=== PATIENT | female | born 1945 | race Caucasian/White ===

== ENCOUNTER → 2016-08-05 | Outpatient (CLI) | payer BC ==
[~2016-08-05] MED LIST: AMIT25TA9 PO; CHOL1000 PO; FENO48TA9 PO; PRVC10 PO
[2016-08-05 11:29] LABS: CHOLESTEROL 282 mg/dl (0-200); CHOLESTEROL/HDL RATIO 6.4; HDL CHOLESTEROL 44 mg/dl; THYROID STIMULATING HORMONE 0.584 uIu/ml (0.300-4.500); TRIGLYCERIDES 361 mg/dl (0-150); VERY LOW DENSITY LIPOPROT CALC 72 mg/dl
== END | disposition home or self-care (01) ==
LOC: C.LAB 09:02
DX: E78.5 Hyperlipidemia, unspecified (principal); E03.9 Hypothyroidism, unspecified

== ENCOUNTER 2017-01-11 17:12 | Emergency (ER) | payer OTHER, BC ==
[2017-01-11 17:17] VITALS: TEMP 36.7; Ht 170.2 cm
[2017-01-11] MEDS ORDERED: CHOL1000 PO (17:31)
[2017-01-11] MEDS ORDERED: PRVC10 PO (17:31)
[2017-01-11] MEDS ORDERED: AMIT25TA9 PO (17:31)
[2017-01-11] MEDS ORDERED: FENO48TA9 PO (17:31)
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
[2017-01-11 18:23] VITALS: BP 145/79; PULSE 71; O2SAT 98
== END 2017-01-11 18:24 | disposition home or self-care (01) ==
LOC: C.EDB 17:13 → C.EDD 18:24
DX: S50.01XA Contusion of right elbow, initial encounter (principal); V43.62XA Car passenger injured in collision with other type car in traffic accident, initial encounter; Y92.410 Unspecified street and highway as the place of occurrence of the external cause; E11.9 Type 2 diabetes mellitus without complications; E78.5 Hyperlipidemia, unspecified; Z79.899 Other long term (current) drug therapy

== ENCOUNTER → 2017-01-17 | Outpatient (CLI) | payer BC ==
[2017-01-17 12:16] LABS: BASO % 0.2 %; BASO ABS # 0.01 K/uL (0-0.2); COMPLETE YES; HEMATOCRIT 41.9 % (37-47); IG% 1.1 %; LYMPH ABS # 1.49 K/uL (1.2-3.4); MEAN CELL VOLUME 90.7 fL (80-100); MEAN PLATELET VOLUME 11.3 fL (7.4-10.4); MONO % 11.6 %; NEUT % 52.1 %; PLATELET COUNT 160 K/uL (130-400); RED BLOOD COUNT 4.62 M/uL (4.2-5.4); WHITE BLOOD COUNT 4.65 K/uL (4.8-10.8)
[2017-01-17 12:38] LABS: ESTIMATED AVERAGE GLUCOSE 111 mg/dl; HA1C FLAG Normal (Normal)
[2017-01-17 12:49] LABS: GLUCOSE 93 mg/dl (70-99)
[2017-01-17 12:50] LABS: ALT/SGPT 31 U/L (12-78); AST/SGOT 22 U/L (15-37); BLOOD UREA NITROGEN 23 mg/dl (7-18); BUN/CREATININE RATIO 17.4 (10-20); CALCIUM 9.5 mg/dl (8.5-10.1); CARBON DIOXIDE 29 mmol/L (21-32); CHLORIDE 108 mmol/L (98-107); POTASSIUM 4.6 mmol/L (3.5-5.1); SODIUM 142 mmol/L (136-145); TRIGLYCERIDES 295 mg/dl (0-150)
--- NOTE | 2017-01-24 10:14 | CODING QUERY MEDICAL NECESSITY ---
CQSUPPORTING DIAGNOSIS NEEDED A supporting diagnosis is required for the test/procedure performed on this patient in order for us to be reimbursed by the patient's insurance. Please provide a supporting diagnosis for the following test/procedure listed below next to the test name along with your signature. *If there is no additional diagnosis for this patient that would support the following test/procedure please document that below next to the test/procedure. Test(s)/Procedure(s) that require a supporting diagnosis: DOS 01/17/17 GLYCATED HEMOGLOBIN TEST Provider Signature: Date: Thank you M[facility] Information [facility] Once completed, please kindly fax back to [phone] For questions please call [phone]
== END | disposition home or self-care (01) ==
LOC: C.LAB 09:40
DX: E78.5 Hyperlipidemia, unspecified (principal); I10 Essential (primary) hypertension; E88.81 Metabolic syndrome and other insulin resistance; D72.819 Decreased white blood cell count, unspecified; E11.9 Type 2 diabetes mellitus without complications

== ENCOUNTER → 2017-05-26 | Outpatient (CLI) | payer BC ==
[2017-05-26 12:14] LABS: BASO % 0.2 %; BASO ABS # 0.01 K/uL (0-0.2); COMPLETE YES; EOS % 2.6 %; HEMATOCRIT 43.6 % (37-47); IG% 0.7 %; LYMPH % 34.2 %; LYMPH ABS # 1.55 K/uL (1.2-3.4); MEAN CORPUSCULAR HEMOGLOBIN 28.2 pg (25-34); MEAN CORPUSCULAR HGB CONC 31.7 g/dl (32-36); MEAN PLATELET VOLUME 10.6 fL (7.4-10.4); MONO % 10.4 %; NEUT % 51.9 %; PLATELET COUNT 148 K/uL (130-400); WHITE BLOOD COUNT 4.53 K/uL (4.8-10.8)
[2017-05-26 12:42] LABS: ALT/SGPT 41 U/L (12-78); AST/SGOT 27 U/L (15-37); BLOOD UREA NITROGEN 21 mg/dl (7-18); BUN/CREATININE RATIO 19.5 (10-20); CALCIUM 9.3 mg/dl (8.5-10.1); CARBON DIOXIDE 28 mmol/L (21-32); CHLORIDE 104 mmol/L (98-107); CHOLESTEROL 348 mg/dl (0-200); GLUCOSE 92 mg/dl (70-99); POTASSIUM 4.3 mmol/L (3.5-5.1); SODIUM 138 mmol/L (136-145)
[2017-05-26 12:53] LABS: CHOLESTEROL/HDL RATIO 7.7; HDL CHOLESTEROL 45 mg/dl; LDL CHOLESTEROL CALCULATED 230 mg/dl; TRIGLYCERIDES 365 mg/dl (0-150); VERY LOW DENSITY LIPOPROT CALC 73 mg/dl
== END | disposition home or self-care (01) ==
LOC: C.LAB 10:53
DX: E03.9 Hypothyroidism, unspecified (principal); E78.5 Hyperlipidemia, unspecified; D64.9 Anemia, unspecified; E88.81 Metabolic syndrome and other insulin resistance

== ENCOUNTER → 2017-10-03 | Outpatient (CLI) | payer BC | END | disposition home or self-care (01) | LOC: C.LAB 09:59 | DX: E78.5 Hyperlipidemia, unspecified (principal) ==

== ENCOUNTER → 2017-12-24 | Outpatient (CLI) | payer BC | END | disposition home or self-care (01) | LOC: C.LAB 10:34 | DX: E78.5 Hyperlipidemia, unspecified (principal); E03.9 Hypothyroidism, unspecified ==

== ENCOUNTER → 2017-12-24 | Outpatient (CLI) | payer BC ==
--- NOTE | 2017-12-25 08:11 | MAMMOGRAPHY REPORT ---
UNILATERAL RIGHT DIGITAL DIAGNOSTIC MAMMOGRAM TOMOSYNTHESIS: 12/24/2017 CLINICAL HISTORY: 72-year-old woman called back from screening mammography for a 9 mm asymmetry in th e medial, posterior right breast, only seen on the CC view located at slice 11/82 of the tomosynthesi s series. TECHNIQUE: Spot compression right CC and MLO tomosynthesis images were obtained after placement of mo le markers in the medial right breast. COMPARISON: Comparison is made to exams dated: 12/09/2017 mammogram, 12/20/2014 mammogram, and 4 mammogram - [facility]. BREAST COMPOSITION: The tissue of right breast is almost entirely fatty. FINDINGS: On the spot compression right CC and MLO images, a circular mole marker surrounds the 9 mm asymmetry in question and it is located on the first slice of the series in the CC projection, confir humberto a benign dermal lesion. There is no mammographic evidence of malignancy in the right breast. R ecommend return to annual screening mammography schedule. IMPRESSION: There is no mammographic evidence of malignancy in the right breast. The 9 mm asymmetry in the media l, posterior right breast represents a benign dermal mole. Return to annual mammogram screening sched ule is recommended.(12/10/2018) The patient has been verbally notified of the results. Approximately 10% of breast cancers are not detected with mammography. A negative mammographic report should not delay biopsy if a clinically suggestive mass is present. Cinthia Holliday M.D. ay/:12/24/2017 10:19:30 [place] Working Supervisor: RT Ronnie(Fady)(M), [facility] letter sent: Normal 1/2 BI-RADS Code: ACR BI-RADS Category 2: Benign
== END | disposition home or self-care (01) ==
LOC: C.MAMM 09:54
DX: N64.89 Other specified disorders of breast (principal)